=== PATIENT | male | born 1965 | race Caucasian/White ===

== ENCOUNTER 2018-06-29 08:32 | Day surgery (SDC) | payer OTHER ==
[~2018-06-29] VITALS: Ht 167.6 cm; Wt 63.5 kg
[2018-06-29] MEDS ORDERED: KETOROLAC 30 MG/ML VIAL ONE (09:43)
[2018-06-29] MEDS ORDERED: LIDOCAINE 2% 100 MG/5 ML UJET TP ONE (09:44)
== END 2018-06-29 11:35 | disposition home or self-care (01) ==
LOC: MDS 08:32 → MMU 08:32 → MDS 11:35
PROVIDERS: ATTEND Internal Medicine Gastroenterology
DX: Z12.11 Encounter for screening for malignant neoplasm of colon (principal); Z83.3 Family history of diabetes mellitus; C91.01 Acute lymphoblastic leukemia, in remission; N32.81 Overactive bladder; E11.9 Type 2 diabetes mellitus without complications; Z98.890 Other specified postprocedural states; E11.22 Type 2 diabetes mellitus with diabetic chronic kidney disease; N18.9 Chronic kidney disease, unspecified; Z79.899 Other long term (current) drug therapy; E29.1 Testicular hypofunction
CPT/HCPCS: G0121; J1885